=== PATIENT | female | born 1965 | race American Indian/Alaskan Native ===

== ENCOUNTER 2018-07-17 18:09 | Emergency (ER) | payer BC ==
[2018-07-17] MEDS ORDERED: APRESOLINE PO ONE (20:10)
--- NOTE | 2018-07-17 20:14 | Emergency Department Report ---
ED General Adult HPI - General Chief complaint: High BP Stated complaint: HIGH BP Time Seen by Provider: 07/17/18 19:55 Source: patient Mode of arrival: Ambulatory Limitations: No Limitations - History of Present Illness Initial comments: 52-year-old -[place] female presents to the emergency room for elevated blood pressure. Patient reports that she went to do a D OT exam and blood pressure was elevated as high as 182/112. Patient reports that she is aware she has hypertension and is currently taking lisinopril/hydrochlorothiazide 20/ 25 milligrams. Patient reports that she doesn't take it every day as she is trying to make the blood pressure medicine stretch. Patient does admit to having a headache last week and she thought it was due to her elevated blood pressure. Patient reports no change in vision no chest pain or shortness of breathing. Severity scale (0 -10): 0 - Related Data Home Medications Medication Instructions Recorded Confirmed Last Taken Lisinopril/Hydrochlorothiazide 1 tab PO QDAY 03/09/14 03/09/14 03/08/14 09:00 [Zestoretic 20-25 mg] Previous Rx's Medication Instructions Recorded Last Taken Type Omeprazole [PriLOSEC] 40 mg PO DAILY #30 capsule. 03/09/14 Unknown Rx Lisinopril/Hydrochlorothiazide 1 tab PO QDAY #30 tab 07/17/18 Unknown Rx [Zestoretic 20-25 mg] amLODIPine [Norvasc] 5 mg PO DAILY #30 tab 07/17/18 Unknown Rx Allergies Allergy/AdvReac Type Severity Reaction Status Date / Time No Known Allergies Allergy Verified 03/08/14 21:50 ED Review of Systems ROS: Stated complaint: HIGH BP Other details as noted in HPI Comment: All other systems reviewed and negative Neurological: headache (intermittent) ED Past Medical Hx - Past Medical History Hx Hypertension: Yes - Surgical History Additional Surgical History: tubal - Social History Smoking Status: Never Smoker Substance Use Type: None - Medications Home Medications: Home Medications Medication Instructions Recorded Confirmed Last Taken Type Lisinopril/Hydrochlorothiazide 1 tab PO QDAY 03/09/14 03/09/14 03/08/14 09:00 History [Zestoretic 20-25 mg] Omeprazole [PriLOSEC] 40 mg PO DAILY #30 capsule. 03/09/14 Unknown Rx Lisinopril/Hydrochlorothiazide 1 tab PO QDAY #30 tab 07/17/18 Unknown Rx [Zestoretic 20-25 mg] amLODIPine [Norvasc] 5 mg PO DAILY #30 tab 07/17/18 Unknown Rx ED Physical Exam - General Limitations: No Limitations General appearance: alert, in no apparent distress - Head Head exam: Present: atraumatic, normocephalic - Eye Eye exam: Present: normal appearance - ENT ENT exam: Present: mucous membranes moist - Neck Neck exam: Present: normal inspection - Respiratory Respiratory exam: Present: normal lung sounds bilaterally. Absent: respiratory distress - Cardiovascular Cardiovascular Exam: Present: regular rate, normal rhythm. Absent: systolic murmur, diastolic murmur, rubs, gallop - GI/Abdominal GI/Abdominal exam: Present: soft, normal bowel sounds - Extremities Exam Extremities exam: Present: normal inspection - Back Exam Back exam: Present: normal inspection - Neurological Exam Neurological exam: Present: alert, oriented X3 - Psychiatric Psychiatric exam: Present: normal affect, normal mood - Skin Skin exam: Present: warm, dry, intact, normal color. Absent: rash ED Course Vital Signs 07/17/18 07/17/18 07/17/18 18:16 20:09 20:45 Temperature 98.1 F 98.3 F Pulse Rate 74 63 63 Respiratory 15 18 Rate Blood Pressure 169/98 Blood Pressure 160/97 196/101 169/98 [Left] O2 Sat by Pulse 95 97 Oximetry 07/17/18 21:04 Temperature Pulse Rate 66 Respiratory 16 Rate Blood Pressure Blood Pressure 167/95 [Left] O2 Sat by Pulse 98 Oximetry - Reevaluation(s) Reevaluation #1: 07/17/18 21:15 Patient blood pressure has improved from 196/100 when I checked it to now 167/ 95. We will perform. Patient's paperwork for discharge. ED Medical Decision Making - Medical Decision Making Patient has been evaluated by this provider in fast track. Patient be given hydralazine 50 mg for blood pressure management. I discussed the patient I would discharge her on amlodipine 10 mg by mouth daily and refill her lisinopril/hydrochlorothiazide. I also discussed the patient I will refer her to [facility] so she can obtain a primary care provider for chronic disease management. Patient verbalizes understanding. Critical care attestation.: If time is entered above; I have spent that time in minutes in the direct care of this critically ill patient, excluding procedure time. ED Disposition Clinical Impression: Hypertension Qualifiers: Hypertension type: unspecified Qualified Code(s): I10 - Essential (primary) hypertension Disposition: TO HOME OR SELFCARE Is pt being admited?: No Does the pt Need Aspirin: No Condition: Stable Instructions: Hypertension (ED) Additional Instructions: Please take hypertensive medicine as prescribed. Please follow up with her primary care provider I have listed one below. Prescriptions: amLODIPine [Norvasc] 5 mg PO DAILY #30 tab Lisinopril/Hydrochlorothiazide [Zestoretic 20-25 mg] 1 tab PO QDAY #30 tab Referrals: PRIMARY CARE, [Primary Care Provider] - 3-5 Days [facility] [Provider Group] - 3-5 Days Forms: Work/School Release Form(ED)
[2018-07-17 21:05] VITALS: BP 167/95
== END 2018-07-17 21:15 | disposition home or self-care (01) ==
LOC: ED 18:09
DX: I10 Essential (primary) hypertension (principal)
CPT/HCPCS: 99282

== ENCOUNTER 2022-01-03 01:56 | Emergency (ER) | payer BC ==
[2022-01-03 03:53] VITALS: BP 144/90
[2022-01-03] MEDS ORDERED: LIDOCAINE (1%) 10 MG/1 ML VIAL 20 ML MDV INFILTRATI ONE (04:19)
--- NOTE | 2022-01-03 04:42 | Emergency Department Report ---
ED Upper Extremity Inj HPI - General Chief Complaint: Wound/Laceration Stated Complaint: CUT FINGER Time Seen by Provider: 01/03/22 04:18 Source: patient Mode of arrival: Ambulatory Limitations: No Limitations - History of Present Illness Initial Comments: 56-year-old female presents to the ER today with complaints of laceration to her left index finger. Patient states that she was trying to open a package using a kitchen knife when she accidentally cut her left index finger. She states that this occurred around 10 PM last night. She states that the main reason she came in is because the area kept on bleeding. She also reports associated pain a round the area. She reports no numbness or tingling. She is able to move the finger but it is painful. She is not up-to-date on her tetanus. Complaint: Injury to:: finger (laceration) -: Last night - Related Data Home Medications Medication Instructions Recorded Confirmed Last Taken Lisinopril/Hydrochlorothiazide 1 tab PO QDAY 03/09/14 03/09/14 03/08/14 09:00 [Zestoretic 20-25 mg] Previous Rx's Medication Instructions Recorded Last Taken Type Omeprazole [PriLOSEC] 40 mg PO DAILY #30 capsule. 03/09/14 Unknown Rx Lisinopril/Hydrochlorothiazide 1 tab PO QDAY #30 tab 07/17/18 Unknown Rx [Zestoretic 20-25 mg] amLODIPine 5 mg PO DAILY #30 tab 07/17/18 Unknown Rx Allergies Allergy/AdvReac Type Severity Reaction Status Date / Time No Known Allergies Allergy Verified 03/08/14 21:50 ED Review of Systems ROS: Stated complaint: CUT FINGER Other details as noted in HPI Comment: All other systems reviewed and negative Musculoskeletal: arthralgia, myalgia Skin: other (Laceration left fifth finger) ED Past Medical Hx - Past Medical History Previous Medical History?: Yes Hx Hypertension: Yes - Surgical History Past Surgical History?: Yes Additional Surgical History: tubal - Social History Smoking Status: Never Smoker Substance Use Type: None - Medications Home Medications: Home Medications Medication Instructions Recorded Confirmed Last Taken Type Lisinopril/Hydrochlorothiazide 1 tab PO QDAY 03/09/14 03/09/14 03/08/14 09:00 History [Zestoretic 20-25 mg] Omeprazole [PriLOSEC] 40 mg PO DAILY #30 capsule. 03/09/14 Unknown Rx Lisinopril/Hydrochlorothiazide 1 tab PO QDAY #30 tab 07/17/18 Unknown Rx [Zestoretic 20-25 mg] amLODIPine 5 mg PO DAILY #30 tab 07/17/18 Unknown Rx ED Physical Exam - General Limitations: No Limitations General appearance: alert, in no apparent distress - Head Head exam: Present: atraumatic, normocephalic, normal inspection - Neck Neck exam: Present: normal inspection, full ROM. Absent: meningismus - Respiratory Respiratory exam: Present: normal lung sounds bilaterally. Absent: respiratory distress, wheezes, rales, rhonchi - Cardiovascular Cardiovascular Exam: Present: regular rate, normal rhythm, normal heart sounds - GI/Abdominal GI/Abdominal exam: Present: soft. Absent: distended, tenderness, guarding, rebound - Expanded Upper Extremity Exam Left Hand Wrist exam: Present: other (No tendon injury or bony injury noted. Range of motion of the finger normal. Cap refill normal and sensation intact.) Hand L/R Front: 1 - Positive: laceration (Approximately 3 cm superficial laceration noted. No apparent foreign body. Mild intermittent bleeding). Negative: abrasion, nail injury (#), foreign body, amputation, avulsion Neuro motor exam: Present: wrist extension intact, thumb opposition intact, thumb IP flexion intact, thumb adduction intact, fingers 2-5 abduction intact Neurosensory exam: Present: radial nerve intact, ulnar nerve intact, median nerve intact Vascular: Present: normal capillary refill, radial pulse (Normal). Absent: vascular compromise - Neurological Exam Neurological exam: Present: alert, oriented X3, CN II-XII intact, normal gait - Psychiatric Psychiatric exam: Present: normal affect, normal mood ED Course Vital Signs 01/03/22 03:42 Temperature 97.9 F Pulse Rate 69 Respiratory 17 Rate Blood Pressure 144/90 [Right] O2 Sat by Pulse 100 Oximetry - Laceration /Wound Repair Left Distal Finger Wound Location: upper extremity (Left fifth finger) Wound Length (cm): 3 Wound's Depth, Shape: superficial Wound Explored: clean Irrigated w/ Saline (ccs): 50 Betadine Prep?: Yes Anesthesia: 1% Lidocaine Volume Anesthetic (ccs): 10 (Digital block) Wound Repaired With: sutures Suture Size/Type: 5:0, nylon Number of Sutures: 6 Sterile Dressing Applied?: Yes Progress: Patient tolerated procedure well without any complications. Critical care attestation.: If time is entered above; I have spent that time in minutes in the direct care of this critically ill patient, excluding procedure time. ED Disposition Clinical Impression: Laceration of finger Disposition: HOME / SELF CARE / HOMELESS Is pt being admited?: No Does the pt Need Aspirin: No Condition: Stable Instructions: Sutures, Stanton, or Adhesive Wound Closure, [id number] Additional Instructions: Keep the area clean daily with soap and water. Do not use peroxide or alcohol. Dry well after each cleaning and apply thin layer of Neosporin. Do this daily until its time to remove the stitches which should be in the next 7 to 10 days. Take Tylenol and ibuprofen for pain. Return sooner if there is any signs and symptoms of infection such as pus drainage, increased pain or swelling. Referrals: PRIMARY CARE, [Referring] - 3-5 Days Forms: Work/School Release Form(ED) Time of Disposition: 04:48
[2022-01-03] MEDS ORDERED: NEOMY 3.5 MG/BACIT 400 UNITS/POLY B 5000 UNITS/GM OINT PACKET TP ONE (04:48)
[2022-01-03] MEDS ORDERED: TETANUS,DIPH,PERTUSS(ACELL) VACCINE 0.5 ML SYRINGE IM ONE (04:48)
== END 2022-01-03 05:40 | disposition home or self-care (01) ==
LOC: ED 01:56
DX: S61.211A Laceration without foreign body of left index finger without damage to nail, initial encounter (principal); I10 Essential (primary) hypertension; Z79.899 Other long term (current) drug therapy; Z98.890 Other specified postprocedural states; W26.0XXA Contact with knife, initial encounter; Y93.89 Activity, other specified; Y92.89 Other specified places as the place of occurrence of the external cause; Y99.8 Other external cause status
CPT/HCPCS: 12002; 90715; 99282; J3490

== ENCOUNTER 2022-01-13 15:50 | Emergency (ER) | payer BC ==
[2022-01-13 16:07] VITALS: BP 137/80
--- NOTE | 2022-01-13 16:58 | Emergency Department Report ---
Suture/Staple Removal - [facility] Chief Complaint: Laceration/Recheck/Suture Stated Complaint: STICHES REMOVAL Time Seen by Provider: 01/13/22 16:54 When Sutures or Fabian Placed: 8-10 Days Ago Wound Location: left index finger ED Review of Systems ROS: Stated complaint: STICHES REMOVAL Other details as noted in HPI Constitutional: denies: chills, fever Eyes: denies: eye pain, eye discharge, vision change ENT: denies: ear pain, throat pain Respiratory: denies: cough, shortness of breath, wheezing Cardiovascular: denies: chest pain, palpitations Endocrine: no symptoms reported Gastrointestinal: denies: abdominal pain, nausea, diarrhea Genitourinary: denies: urgency, dysuria, discharge Musculoskeletal: denies: back pain, joint swelling, arthralgia Skin: other (6 simple suture intact to left index finger). denies: rash, lesions Neurological: denies: headache, weakness, paresthesias Psychiatric: denies: anxiety, depression Hematological/Lymphatic: denies: easy bleeding, easy bruising ED Past Medical Hx - Past Medical History Hx Hypertension: Yes - Surgical History Additional Surgical History: tubal - Social History Smoking Status: Never Smoker Substance Use Type: None - Medications Home Medications: Home Medications Medication Instructions Recorded Confirmed Last Taken Type Lisinopril/Hydrochlorothiazide 1 tab PO QDAY 03/09/14 03/09/14 03/08/14 09:00 History [Zestoretic 20-25 mg] Omeprazole [PriLOSEC] 40 mg PO DAILY #30 capsule. 03/09/14 Unknown Rx Lisinopril/Hydrochlorothiazide 1 tab PO QDAY #30 tab 07/17/18 Unknown Rx [Zestoretic 20-25 mg] amLODIPine 5 mg PO DAILY #30 tab 07/17/18 Unknown Rx Suture Removal Exam - Exam General: Vital signs noted. No distress. Alert and acting appropriately. 56-year-old female presents to the ED with 6 simple sutures intact to the left index finger. No erythema, swelling, drainage noted from site. Patient able to move finger without any difficulty. Patient alert and oriented x3. No acute distress noted. No Ill appearance noted Wound: No Pathologic Erythema, No Tenderness, No Drainage, No Pus, No Wound Dehiscence Other Systems: All other systems reviewed and are unremarkable. ED Course Vital Signs 01/13/22 16:06 Pulse Rate 79 Respiratory 16 Rate Blood Pressure 137/80 [Left] O2 Sat by Pulse 95 Oximetry ED Recheck MDM - Medical Decision Making 56-year-old female presents to the ED with 6 simple sutures intact to the left index finger. No erythema, swelling, drainage noted from site. Patient able to move finger without any difficulty. Patient alert and oriented x3. No acute distress noted. No Ill appearance noted Critical care attestation.: If time is entered above; I have spent that time in minutes in the direct care of this critically ill patient, excluding procedure time. ED Disposition Clinical Impression: Encounter for removal of sutures Disposition: HOME / SELF CARE / HOMELESS Is pt being admited?: No Does the pt Need Aspirin: No Condition: Stable Instructions: Wound Closure Removal, Care After Additional Instructions: Follow-up with hand specialist of your choice Return to the ED if you notice any swelling ,redness, no drainage [facility] [phone] Referrals: PRIMARY CAREMD [Primary Care Provider] - 3-5 Days Forms: Work/School Release Form(ED)
== END 2022-01-13 17:26 | disposition home or self-care (01) ==
LOC: ED 15:50
DX: S61.211D Laceration without foreign body of left index finger without damage to nail, subsequent encounter (principal); X58.XXXD Exposure to other specified factors, subsequent encounter
CPT/HCPCS: 99282